=== PATIENT | female | born 1945 | race Caucasian/White ===

== ENCOUNTER → 2017-10-20 | Outpatient (CLI) | payer MEDICARE ==
[~2017-10-20] MED LIST: ULTRAM50 MG PO; Z.0.AMBIEN10 MG PO; Z.0.DIOVAN160 MG PO; Z.0.LIPITOR20 MG PO; Z.0.NIASPAN500 MG PO; Z.2.METFORMIN HCL500 PO
--- NOTE | 2017-10-20 19:09 | Diagnostic Imaging Report ---
PROCEDURE:X-RAY RIGHT FOOT, COMPLETE COMPARISON:None. INDICATIONS:FALL 4 WEEKS AGO. BRUISING/PAIN TO RIGHT GREAT TOE FINDINGS: Mildly decreased mineralization, which limits evaluation of the bony structures. No acute, displaced fracture or dislocation, within the limitations of the study. No lytic or blastic lesions. Mild degenerative changes in the first metatarsophalangeal joint Small anterior calcaneal enthesophyte. Soft tissues are unremarkable. CONCLUSION: Mildly decreased mineralization, which limits evaluation of the bony structures. No acute displaced fracture or dislocation, within the limitations of the study. Howard Shelby M.D. Dictated by: Howard Shelby M.D. on 10/20/2017 at 19:12 Electronically approved by: Howard Shelby M.D. on 10/20/2017 at 19:12
== END ==
LOC: RAD 10:35
PROVIDERS: ATTEND Family Medicine
DX: M79.674 Pain in right toe(s) (principal)

== ENCOUNTER → 2017-12-28 | Outpatient (CLI) | payer MEDICARE ==
--- NOTE | 2017-12-28 16:18 | Diagnostic Imaging Report ---
PROCEDURE: CT ABDOMEN AND PELVIS WITHOUT CONTRAST TECHNIQUE: The abdomen and pelvis were scanned utilizing a multidetector helical scanner from the diaphragm to the lesser trochanter after the oral administration of Readi-Cat. No IV contrast was administered per protocol/per physician request. Coronal and sagittal multiplanar reformations were obtained. DLP: 722.8 mGy-cm COMPARISON: None. INDICATIONS: LOWER LEFT QUADRANT PAIN FINDINGS: ABSENCE OF INTRAVENOUS CONTRAST DECREASES SENSITIVITY FOR DETECTION OF FOCAL LESIONS AND VASCULAR PATHOLOGY. LOWER THORAX: Partially imaged atherosclerotic calcification of the LAD. HEPATOBILIARY: Unenhanced liver is unremarkable. No biliary ductal dilatation. Cholecystectomy. SPLEEN: No splenomegaly. Calcified granulomas. PANCREAS: No focal masses or ductal dilatation. ADRENALS: No adrenal nodules. KIDNEYS/URETERS: No hydronephrosis. Punctate left superior pole calculus (series 2, image 24). PELVIC ORGANS/BLADDER: Hysterectomy. Bladder is under distended. PERITONEUM / RETROPERITONEUM: No free air or fluid. LYMPH NODES: No lymphadenopathy. VESSELS: Unremarkable. GI TRACT: No distention or wall thickening. Few sigmoid diverticula without evidence of diverticulitis. Appendix is not visualized. Small hiatal hernia. BONES AND SOFT TISSUES: Degenerative changes of the visualized spine. Grade 1 retrolisthesis of L5 in relation to L4. Bilateral buttock injection granulomas. IMPRESSION: Punctate left renal superior pole calculus. No evidence of obstructive urolithiasis. Dictated by: Geraldo Summers M.D. on 12/28/2017 at 16:24 Electronically approved by: Geraldo Summers M.D. on 12/28/2017 at 16:24
== END ==
LOC: CT 14:33
PROVIDERS: ATTEND Family Medicine
DX: R10.32 Left lower quadrant pain (principal)
CPT/HCPCS: 74176

== ENCOUNTER 2018-02-20 21:29 | Emergency (ER) | payer MEDICARE ==
[~2018-02-20] VITALS: Ht 165.1 cm; Wt 72.6 kg
--- NOTE | 2018-02-21 01:20 | Diagnostic Imaging Report ---
EXAM: ABDOMEN COMP INCL UPR or DECUB INDICATION: Constipation with pain COMPARISON: None FINDINGS: LINES/TUBES: None BOWEL PATTERN: No evidence for obstruction. SOFT TISSUES: No abnormal calcifications. Small hiatal hernia. Right upper quadrant surgical clips. Large amount of retained stool. LUNG BASES: Not included BONES: No acute findings. IMPRESSION: Large amount of retained stool. No evidence for obstruction. Normal appearance of the chest. Signed by: Dr. Karina Eid M.D. on 02/21/2018 1:17 AM
[2018-02-21 02:07] VITALS: BP 167/93
--- OUTSIDE RECORDS SUMMARY | 2018-02-23 13:49 | XMS REPORT ---
Author Author [facility] Address Unknown Phone Unavailable Care Team Providers Care Fiscal Assistant Name Role Phone Ryne ROLON Unavailable Unavailable Lewis MCDERMOTT Unavailable Unavailable Problems This patient has no known problems. Allergies, Adverse Reactions, Alerts This patient has no known allergies or adverse reactions. Medications This patient has no known medications. Results Test Description Test Time Test Comments Text Results Atomic Results Result Comments ABDOMEN COMP INCL UPR or DECUB 2018-02-21 01:13:00 [place] [id number] Patient Name: MARITZA VAUGHN MR #: [id number] : 1945 Age/Sex: 72/F Req #: [id number] Adm Physician: Ordered by: CHARO ROLON MD Report #: [id number] Location: ER Room/Bed: Procedure: [id number] DX/ABDOMEN COMP INCL UPR or DECUB Exam Date: 02/21/18 Exam Time: 0045 REPORT STATUS: Signed EXAM: ABDOMEN COMP INCL UPR or DECUB INDICATION: Constipation with pain COMPARISON: None FINDINGS: LINES/TUBES: None BOWEL PATTERN: No evidence for obstruction. SOFT TISSUES: No abnormal calcifications. Small hiatal hernia. Right upper quadrant surgical clips. Large amount of retained stool. LUNG BASES: Not included BONES: No acute findings. IMPRESSION: Large amount of retained stool. No evidence for obstruction. Normal appearance of the chest. Signed by: Dr. Sandra Eid M.D. on 02/21/2018 1:17 AM Dictated By: SANDRA EID MD 6 Transcribed By: ECHO on 02/21/18116 COPY TO: CHARO ROLON MD CT ABDOMEN/PELVIS WO 2017-12-28 16:24:00 [place] [id number] Patient Name: MARITZA VAUGHN MR #: [id number] : 1945 Age/Sex: 72/F Req #: [id number] Adm Physician: Ordered by: FLOR MCDERMOTT MD Report #: [id number] Location: CT Room/Bed: Procedure: [id number] CT/CT ABDOMEN/PELVIS WO Exam Date: 12/28/17 Exam Time: 1529 REPORT STATUS: Signed PROCEDURE: CT ABDOMEN AND PELVIS WITHOUT CONTRAST TECHNIQUE: The abdomen and pelvis were scanned utilizing a multidetector helical scanner from the diaphragm to the lesser trochanter after the oral administration of Readi-Cat. No IV contrast was administered per protocol/per physician request. Coronal and sagittal multiplanar reformations were obtained. DLP: 722.8 mGy-cm COMPARISON: None. INDICATIONS: LOWER LEFT QUADRANT PAIN FINDINGS: ABSENCE OF INTRAVENOUS CONTRAST DECREASES SENSITIVITY FOR DETECTION OF FOCAL LESIONS AND VASCULAR PATHOLOGY. LOWER THORAX: Partially imaged atherosclerotic calcification of the LAD. HEPATOBILIARY: Unenhanced liver is unremarkable. No biliary ductal dilatation. Cholecystectomy. SPLEEN: No splenomegaly. Calcified granulomas. PANCREAS: No focal masses or ductal dilatation. ADRENALS: No adrenal nodules. KIDNEYS/URETERS: No hydronephrosis. Punctate left superior pole calculus (series 2, image 24). PELVIC ORGANS/BLADDER: Hysterectomy. Bladder is under distended. PERITONEUM / RETROPERITONEUM: No free air or fluid. LYMPH NODES: No lymphadenopathy. VESSELS: Unremarkable. GI TRACT: No distention or wall thickening. Few sigmoid diverticula without evidence of diverticulitis. Appendix is not visualized. Small hiatal hernia. BONES AND SOFT TISSUES: Degenerative changes of the visualized spine. Grade 1 retrolisthesis of L5 in relation to L4. Bilateral buttock injection granulomas. IMPRESSION: Punctate left renal superior pole calculus. No evidence of obstructive urolithiasis. Dictated by: Geraldo Alatorre M.D. on 12/28/2017 at 16:24 Electronically approved by: Geraldo Alatorre M.D. on 12/28/2017 at 16:24 Dictated By: GERALDO ALATORRE MD E lectronically Signed By: GERALDO ALATORRE MD on 12/28/171623 Transcribed By: ZANDER on 12/28/171623 COPY TO: FLOR MCDERMOTT MD FOOT RIGHT COMPLETE 2017-10-20 19:12:00 [place] [id number] Patient Name: MARITZA VAUGHN MR #: [id number] : 1945 Age/Sex: 72/F Req #: [id number] Adm Physician: Ordered by: FLOR MCDERMOTT MD Report #: [id number] Location: [facility] Room/Bed: Procedure: [id number] DX/FOOT RIGHT COMPLETE Exam Date: 10/20/17 Exam Time: 1050 REPORT STATUS: Signed PROCEDURE: X-RAY RIGHT FOOT, COMPLETE COMPARISON: None. INDICATIONS: FALL 4 WEEKS AGO. BRUISING/PAIN TO RIGHT GREAT TOE FINDINGS: Mildly decreased mineralization, which limits evaluation of the bony structures. No acute, displaced fracture or dislocation, within the limitations of the study. No lytic or blastic lesions. Mild degenerative changes in the first metatarsophalangeal joint Small anterior calcaneal enthesophyte. Soft tissues are unremarkable. CONCLUSION: Mildly decreased mineralization, which limits evaluation of the bony structures. No acute displaced fracture or dislocation, within the limitations of the study. Stiven Shelby M.D. Dictated by: Stiven Shelby M.D. on 10/20/2017 at 19:12 Electronically approved by: Stiven Shelby M.D. on 10/20/2017 at 19:12 Dictated By: STIVEN SHELBY MD 11 Transcribed By: ZANDER on 10/20/171911 COPY TO: FLOR MCDERMOTT MD
== END 2018-02-21 02:12 | disposition home or self-care (01) ==
LOC: ER 21:29
DX: K62.89 Other specified diseases of anus and rectum (principal); K64.8 Other hemorrhoids; K59.00 Constipation, unspecified
CPT/HCPCS: 99282

== ENCOUNTER → 2020-01-27 | Day surgery (SDC) | payer MEDICARE, OTHER ==
[2020-01-24 12:01] LABS: BASOPHILS # (AUTO) 0.1 (0.0-0.1); BASOPHILS % 0.7 % (0.0-1.0); EOSINOPHILS # (AUTO) 0.3 (0.0-0.4); EOSINOPHILS % 4.5 % (0.0-6.0); HEMATOCRIT 45.8 % (34.2-44.1); LYMPHOCYTES % 40.6 % (18.0-39.1); MEAN CORPUSCULAR HEMOGLOBIN 30.1 pg (28-32); MEAN CORPUSCULAR HGB CONC 32.8 g/dL (31-35); MEAN CORPUSCULAR VOLUME 91.8 fL (81-99); MONOCYTES # (AUTO) 0.6 (0.2-0.8); MONOCYTES % 8.2 % (4.4-11.3); NEUTROPHILS # (AUTO) 3.3 (2.1-6.9); NEUTROPHILS % 45.7 % (38.7-80.0); PLATELET COUNT 218 x10e3/uL (140-360); RED BLOOD COUNT 4.99 x10e6/uL (3.6-5.1)
[~2020-01-27] MED LIST changes: +ATORVASTATIN CA20 MG PO; +CIPRO500 MG PO; +DEXILANT60 MG PO; +FENTANYL CITRATE/PF 100MCG/2 ML INJ ONE; +HYOSCYAMINE 0.125 MG TAB ONE; +METOCLOPRAMIDE HCL 10 MG/2ML VIAL ONE; +MIDAZOLAM HCL 2 MG/2 ML VIAL ONE; +ONDANSETRON HCL INJ 2MG/ML 2ML 2 MG/ML VIAL ONE; +PROPOFOL IV EMULSION 10 MG/ML 20 ML VIAL ONE
[2020-01-27 19:56] VITALS: BP 128/70
[2020-01-27 20:02] LABS: WBC,FECAL (FECAL LACTOFERRIN) NEGATIVE (NEGATIVE)
--- NOTE | 2020-01-27 21:22 | Operative Report ---
DATE OF PROCEDURE: 01/27/2020 SURGEON: Praveen Byrd MD PROCEDURE: Colonoscopy with biopsies. INDICATIONS FOR COLONOSCOPY: Lower abdominal pain, bloody diarrhea, personal history of colon polyps. MEDICATIONS: The patient was done under MAC, please see anesthesiologist's note. PROCEDURE IN DETAIL: With the patient in the left lateral decubitus position, a flexible fiberoptic Olympus colonoscope was inserted into the rectum with ease and advanced all the way to the cecum. There was some retained stools in the right colon, but visualization was fair. The scope was then withdrawn slowly, whatever was visualized the mucosa overlying the cecum and ascending colon appeared to be within normal limits as well as transverse colon. Some mild patchy inflammatory changes were noted in left colon and random biopsies were obtained. Diverticular disease was noted also in the left colon. Mucosa overlying the rectum revealed some inflammatory findings and biopsies were obtained. The scope was then retroflexed into the distal rectum and small internal hemorrhoids were noted, none of which was actively bleeding. Also, some hypertrophied anal papillae were noted. The scope was then straightened out and it was subsequently withdrawn after securing an adequate stool specimen that was sent for the appropriate stool studies. The patient tolerated the procedure well. IMPRESSION: 1. Suboptimal prep, right colon. 2. Mild patchy colitis, left colon. 3. Diverticulosis. 4. Proctitis, mild, biopsies obtained. 5. Internal hemorrhoids, none actively bleeding. 6. Hypertrophied anal papilla. PLAN: Follow up histology. Follow up stool studies. Initiate Bentyl 20 mg one p.o. t.i.d. VSL #3 one p.o. b.i.d. Praveen Byrd MD [facility] [place]/MODL /[id number] cc: Mikel Kraft MD
[2020-01-28 14:37] LABS: C DIFFICILE TOXIN A&B AMP PROB NEGATIVE (NEGATIVE)
== END | disposition home or self-care (01) ==
LOC: OR 13:32
PROVIDERS: ATTEND Internal Medicine Gastroenterology
DX: K52.9 Noninfective gastroenteritis and colitis, unspecified (principal); Z86.010 Personal history of colon polyps; K29.60 Other gastritis without bleeding; K20.8 Other esophagitis; K57.30 Diverticulosis of large intestine without perforation or abscess without bleeding; K62.89 Other specified diseases of anus and rectum; K64.8 Other hemorrhoids; K59.00 Constipation, unspecified; E11.9 Type 2 diabetes mellitus without complications; E78.00 Pure hypercholesterolemia, unspecified; I10 Essential (primary) hypertension; Z88.1 Allergy status to other antibiotic agents; Z88.8 Allergy status to other drugs, medicaments and biological substances; Z01.810 Encounter for preprocedural cardiovascular examination; Z01.812 Encounter for preprocedural laboratory examination; Z11.59 Encounter for screening for other viral diseases; Z79.84 Long term (current) use of oral hypoglycemic drugs; Z68.30 Body mass index [BMI] 30.0-30.9, adult
CPT/HCPCS: 36415 ×2; 45380; 82948; 83630; 83993; 85025; 85651; 86140; 86256; 86671; 87045; 87177; 87328; 87493; 93005; J2250; J2405; J2704; J2765; J3010; U0002

== ENCOUNTER 2021-11-10 09:19 | Emergency (ER) | payer MEDICARE ==
[~2021-11-10] VITALS: Ht 165.1 cm; Wt 72.6 kg
[~2021-11-10 09:19] MED LIST changes: -FENTANYL CITRATE/PF 100MCG/2 ML INJ ONE; -HYOSCYAMINE 0.125 MG TAB ONE; -METOCLOPRAMIDE HCL 10 MG/2ML VIAL ONE; -MIDAZOLAM HCL 2 MG/2 ML VIAL ONE; -ONDANSETRON HCL INJ 2MG/ML 2ML 2 MG/ML VIAL ONE; -PROPOFOL IV EMULSION 10 MG/ML 20 ML VIAL ONE
[2021-11-10] MEDS ORDERED: KETOROLAC TROMETHAMINE 30 MG/ML VIAL IM STA (09:29)
[2021-11-10] MEDS ORDERED: LIDOCAINE 4% PATCH TP STA (09:29)
[2021-11-10] MEDS ORDERED: DEXAMETHASONE 4 MG TAB PO STA (09:29)
[2021-11-10] MEDS ORDERED: NAPROXEN250 MG PO (09:39)
[2021-11-10] MEDS ORDERED: METHOCARBAMOL500 MG PO (09:39)
[2021-11-10] MEDS ORDERED: ACETAMINOPHEN 325 MG TAB PO ONE (10:00)
[2021-11-10 10:01] LABS: CLARITY,URINE CLEAR (CLEAR); COLOR,URINE YELLOW (YELLOW)
[2021-11-10 10:02] LABS: KETONES,URINE NEGATIVE (NEGATIVE); LEUKOCYTE ESTERASE ,URINE NEGATIVE (NEGATIVE); NITRITE,URINE NEGATIVE (NEGATIVE); PROTEIN,URINE DIPSTICK NEGATIVE (NEGATIVE); URINE UROBILINOGEN 1 mg/dL (0.2 - 1)
[2021-11-10 10:06] LABS: BACTERIA,URINE MODERATE /HPF; EPITHELIAL CELLS,URINE MODERATE /LPF; WBC,URINE (MAN) 0-5 /HPF (0-5)
[2021-11-10 11:11] VITALS: BP 149/98
== END 2021-11-10 11:16 | disposition home or self-care (01) ==
LOC: ER 09:24
DX: M54.89 Other dorsalgia (principal); I10 Essential (primary) hypertension; E11.9 Type 2 diabetes mellitus without complications; K21.9 Gastro-esophageal reflux disease without esophagitis; Z90.49 Acquired absence of other specified parts of digestive tract; Z88.5 Allergy status to narcotic agent; Z88.8 Allergy status to other drugs, medicaments and biological substances
CPT/HCPCS: 81001; 93005; 99283; J1885; J8540

== ENCOUNTER 2024-05-22 13:27 | Emergency (ER) | payer MEDICARE ==
[~2024-05-22] VITALS: Ht 165.1 cm; Wt 72.6 kg
[~2024-05-22 13:27] MED LIST changes: +METHOCARBAMOL500 MG PO; +NAPROXEN250 MG PO
[2024-05-22 13:34] VITALS: TEMP 97.4
[2024-05-22 14:09] LABS: BASOPHILS # (AUTO) 0.1 (0.0-0.1); BASOPHILS % 0.9 % (0.0-1.0); EOSINOPHILS # (AUTO) 0.3 (0.0-0.4); EOSINOPHILS % 3.5 % (0.0-6.0); HEMATOCRIT 50.5 % (34.2-44.1); HEMOGLOBIN 15.8 g/dL (12.0-16.0); LYMPHOCYTES # (AUTO) 3.6 (1.0-3.2); LYMPHOCYTES % 39.5 % (18.0-39.1); MEAN CORPUSCULAR HEMOGLOBIN 31.5 pg (28-32); MEAN CORPUSCULAR HGB CONC 31.3 g/dL (31-35); MEAN CORPUSCULAR VOLUME 100.8 fL (81-99); MONOCYTES # (AUTO) 0.7 (0.2-0.8); MONOCYTES % 7.2 % (4.4-11.3); NEUTROPHILS # (AUTO) 4.4 (2.1-6.9); NEUTROPHILS % 48.7 % (38.7-80.0); PLATELET COUNT 232 x10e3/uL (140-360); RED BLOOD COUNT 5.01 x10e6/uL (3.6-5.1); RED CELL DISTRIBUTION WIDTH 13.6 % (11.7-14.4); WHITE BLOOD COUNT 9.04 x10e3/uL (4.8-10.8)
[2024-05-22 14:26] LABS: ALBUMIN 4.4 g/dL (3.5-5.0); ALBUMIN/GLOBULIN RATIO 1.7 (0.8-2.0); ANION GAP 16.1 mmol/L (8-16); BILIRUBIN,TOTAL 1.1 mg/dL (0.2-1.2); CALCIUM 10.7 mg/dL (8.4-10.2); CREATININE, SERUM 0.82 mg/dL (0.57-1.11); POTASSIUM 4.1 mmol/L (3.5-5.1)
[2024-05-22 15:35] VITALS: PULSE 79; RESP 18; O2SAT 98
[2024-05-22 15:42] LABS: CLARITY,URINE HAZY (CLEAR); COLOR,URINE YELLOW (YELLOW); LEUKOCYTE ESTERASE ,URINE NEGATIVE (NEGATIVE); NITRITE,URINE NEGATIVE (NEGATIVE); PH,URINE 5.5 (5 - 7); PROTEIN,URINE DIPSTICK NEGATIVE (NEGATIVE)
[2024-05-22 15:43] LABS: BILIRUBIN,URINE NEGATIVE (NEGATIVE); GLUCOSE, URINE NEGATIVE (NEGATIVE); KETONES,URINE 1+ (NEGATIVE); URINE UROBILINOGEN 0.2 mg/dL (0.2 - 1)
[2024-05-22 15:45] LABS: BACTERIA,URINE RARE /HPF; EPITHELIAL CELLS,URINE FEW /LPF; RBC,URINE 0-5 /HPF (0-5); WBC,URINE (MAN) 0-5 /HPF (0-5)
== END 2024-05-22 16:05 | disposition home or self-care (01) ==
LOC: ER 13:32
DX: R42 Dizziness and giddiness (principal); R55 Syncope and collapse; I10 Essential (primary) hypertension; E11.9 Type 2 diabetes mellitus without complications; K21.9 Gastro-esophageal reflux disease without esophagitis; R94.31 Abnormal electrocardiogram [ECG] [EKG]
CPT/HCPCS: 36415; 70450; 71045; 80053; 81001; 84484; 85025; 93005; 99284

== ENCOUNTER 2024-07-16 09:31 | Emergency (ER) | payer MEDICARE ==
[~2024-07-16] VITALS: Ht 165.1 cm; Wt 72.6 kg
[2024-07-16 09:31] VITALS: TEMP 97.8
[2024-07-16 10:37] LABS: BASOPHILS # (AUTO) 0.1 (0.0-0.1); BASOPHILS % 1.3 % (0.0-1.0); EOSINOPHILS # (AUTO) 0.2 (0.0-0.4); EOSINOPHILS % 3.6 % (0.0-6.0); HEMATOCRIT 42.1 % (34.2-44.1); HEMOGLOBIN 14.1 g/dL (12.0-16.0); LYMPHOCYTES # (AUTO) 2.4 (1.0-3.2); LYMPHOCYTES % 44.6 % (18.0-39.1); MEAN CORPUSCULAR HEMOGLOBIN 30.7 pg (28-32); MEAN CORPUSCULAR HGB CONC 33.5 g/dL (31-35); MEAN CORPUSCULAR VOLUME 91.7 fL (81-99); MONOCYTES # (AUTO) 0.4 (0.2-0.8); MONOCYTES % 7.6 % (4.4-11.3); NEUTROPHILS # (AUTO) 2.3 (2.1-6.9); NEUTROPHILS % 42.7 % (38.7-80.0); PLATELET COUNT 220 x10e3/uL (140-360); RED BLOOD COUNT 4.59 x10e6/uL (3.6-5.1); RED CELL DISTRIBUTION WIDTH 13.9 % (11.7-14.4); WHITE BLOOD COUNT 5.29 x10e3/uL (4.8-10.8)
[2024-07-16 10:47] LABS: INR 0.91; PARTIAL THROMBOPLASTIN TIME 25.2 seconds (23.8-35.5); PROTHROMBIN TIME 12.8 seconds (11.9-14.5)
[2024-07-16 10:57] LABS: ALANINE AMINOTRANSFERASE 16 IU/L (0-55); ALBUMIN 3.7 g/dL (3.5-5.0); ALBUMIN/GLOBULIN RATIO 1.5 (0.8-2.0); ALKALINE PHOSPHATASE 53 IU/L (40-150); BLOOD UREA NITROGEN 6 mg/dL (7-26); BUN/CREATININE RATIO 7 (6-25); CALCIUM 9.7 mg/dL (8.4-10.2); CARBON DIOXIDE 20 mmol/L (22-29); CHLORIDE 110 mmol/L (98-107); CREATINE KINASE 60 IU/L (29-168); CREATININE, SERUM 0.82 mg/dL (0.57-1.11); EST GLOMERULAR FILTRATION RATE 73 ML/MIN (>=60); GLUCOSE 145 mg/dL (74-118); SODIUM 139 mmol/L (136-145); TOTAL PROTEIN 6.2 g/dL (6.5-8.1)
[2024-07-16 11:16] LABS: INFLUENZA A AG NEGATIVE (NEGATIVE); INFLUENZA B AG NEGATIVE (NEGATIVE)
[2024-07-16 11:17] LABS: CORONAVIRUS COVID-19 AG NEGATIVE (NEGATIVE); THYROID STIMULATING HORMONE 0.735 uIU/mL (0.350-4.940); TROPONIN I < 0.001 ng/mL (0-0.300)
[2024-07-16 11:59] VITALS: PULSE 59; RESP 12; O2SAT 100
== END 2024-07-16 13:56 | disposition home or self-care (01) ==
LOC: ER 09:36
DX: R06.02 Shortness of breath (principal); R00.2 Palpitations; E11.65 Type 2 diabetes mellitus with hyperglycemia; I10 Essential (primary) hypertension; K21.9 Gastro-esophageal reflux disease without esophagitis; Z11.52 Encounter for screening for COVID-19
CPT/HCPCS: 36415; 71045; 80053; 82550; 83735; 83880; 84443; 84484; 85025; 85610; 85730; 93005; 99284